=== PATIENT | male | born 1935 | race African-American/Black ===

== ENCOUNTER 2018-08-05 10:41 | Emergency (ER) | payer OTHER, MEDICAID ==
[~2018-08-05] VITALS: Ht 170.2 cm; Wt 65.0 kg
[2018-08-05 12:20] LABS: CHLORIDE 106 mEq/L (98-107)
[2018-08-05 13:37] LABS: BASOPHILS % 0.2 % (0.0-2.0); EOSINOPHILS % 0.2 % (0.0-5.0); HEMATOCRIT. 46.7 % (42.0-52.0); HEMOGLOBIN. 14.8 g/dL (14.0-18.0); LYMPHOCYTES % 7.4 % (20.0-50.0); MEAN CORPUSCULAR HEMOGLOBIN 21.8 pg (28.0-32.0); MEAN CORPUSCULAR VOLUME 68.6 fL (80.0-94.0); MONOCYTES % 9.5 % (2.0-8.0); NEUTROPHILS % 82.7 % (40.0-76.0); PLATELET 132 x1000/uL (130-400); RED BLOOD CELL COUNT 6.81 mill/uL (4.7-6.1); RED CELL DISTRIBUTION WIDTH 17.1 % (11.6-14.6)
[2018-08-05 14:05] LABS: PLATELET ESTIMATE NORMAL
[2018-08-05 15:21] VITALS: BP 130/62
== END 2018-08-05 15:22 | disposition left against medical advice (07) ==
LOC: EDBD 11:00 → ER 11:00 → CANBEDREQ 16:55
DX: R55 Syncope and collapse (principal); C41.1 Malignant neoplasm of mandible; Z91.81 History of falling
CPT/HCPCS: 36415; 70450; 71045; 80053; 84484; 85025; 93005; 99285

== ENCOUNTER 2019-08-04 21:30 | Inpatient (IN) | payer OTHER, MEDICAID ==
[~2019-08-04] VITALS: Ht 167.6 cm; Wt 49.0 kg
[2019-08-04] MEDS ORDERED: SODIUM CHLORIDE 0.9% 500 ML IV ONE (23:09)
[2019-08-05 00:01] LABS: HEMATOCRIT. 47.9 % (42.0-52.0); HEMOGLOBIN. 14.9 g/dL (14.0-18.0); MEAN CORPUSCULAR VOLUME 67.3 fL (80.0-94.0); MEAN PLATELET VOLUME 9.5 fl (7.4-10.4); PLATELET 154 x1000/uL (130-400); RED BLOOD CELL COUNT 7.11 mill/uL (4.7-6.1); RED CELL DISTRIBUTION WIDTH 16.3 % (11.6-14.6)
[2019-08-05 00:11] LABS: INR 1.2; PARTIAL THROMBOPLASTIN TIME 28.7 sec (23.4-31.0); PROTHROMBIN TIME 12.5 sec (9.6-11.0)
[2019-08-05 00:16] LABS: CHLORIDE 114 mEq/L (98-107)
[2019-08-05 00:28] LABS: CLARITY URINE CLEAR (CLEAR); COLOR URINE YELLOW (YELLOW); KETONES URINE NEGATIVE (NEGATIVE); LEUKOCYTE ESTERASE URINE TRACE (NEGATIVE); NITRITE URINE NEGATIVE (NEGATIVE); OCCULT BLOOD URINE 2+ (NEGATIVE); PROTEIN URINE NEGATIVE (NEGATIVE); SPECIFIC GRAVITY URINE 1.015 (1.005-1.030)
[2019-08-05] MEDS ORDERED: SODIUM CHLORIDE 0.9% 1,000 ML IV SCH (03:13)
[2019-08-05] MEDS ORDERED: CLONIDINE 0.1MG TABLET PO PRN (03:15)
[2019-08-05] MEDS ORDERED: IPRATROPIUM/ALBUTEROL 0.5-3(2.5)MG/3ML NEB HHN PRN (03:15)
[2019-08-05] MEDS ORDERED: ONDANSETRON HCL 4MG/2ML INJ IV PRN (03:15)
[2019-08-05] MEDS ORDERED: DIPHENHYDRAMINE 50MG/ML VIAL IV PRN (03:15)
[2019-08-05] MEDS ORDERED: ACETAMINOPHEN 325MG TABLET PO PRN (03:15)
[2019-08-05] MEDS ORDERED: MAGNESIUM/ALUMINUM HYDROXIDE/SIMETHICONE 30ML UDC PO PRN (03:15)
[2019-08-05 06:36] LABS: PLATELET ESTIMATE NORMAL
[2019-08-05] MEDS: DEXT 5% WATER + KCL 20MEQ/L 1,000 ML IV SCH (08:53)
[2019-08-05] MEDS ORDERED: LEVOFLOXACIN 500MG PREMIX 100 ML IV ONE (14:00)
[2019-08-05] MEDS ORDERED: DIGOXIN 500MCG/2ML AMP IV NR (17:29)
[2019-08-06] VITALS (7 sets, daily range): BP systolic 114–135; BP diastolic 69–89
[2019-08-06 04:17] LABS: BG BASE EXCESS 2.4 mmol/L (-2.0-2.0); BG CARBOXYHEMOGLOBIN 0.6 % (0.5-1.5); BG DEOXYHEMOGLOBIN 10.8 % (0.0-5.0); BG FRACTION INSPIRED OXYGEN 60; BG HCO3 ACT 26.2 mmol/L (22.0-26.0); BG METHEMOGLOBIN 0.3 % (0.0-1.5); BG OXYGEN SATURATION 89.1 % (92.0-98.5); BG OXYHEMOGLOBIN 88.3 % (94.0-97.0); BG PCO2 37.7 mmHg (35.0-45.0); BG PH 7.459 (7.350-7.450); BG SAMPLE SITE LEFT RADIAL; BG TOTAL HEMOGLOBIN 14.7 g/dL (12.0-18.0)
[2019-08-06 06:53] LABS: HEMATOCRIT. 44.6 % (42.0-52.0); HEMOGLOBIN. 13.8 g/dL (14.0-18.0); MEAN CORPUSCULAR HEMOGLOBIN 20.7 pg (28.0-32.0); MEAN CORPUSCULAR VOLUME 66.8 fL (80.0-94.0); MEAN PLATELET VOLUME 9.4 fl (7.4-10.4); PLATELET 142 x1000/uL (130-400); RED BLOOD CELL COUNT 6.68 mill/uL (4.7-6.1); RED CELL DISTRIBUTION WIDTH 16.4 % (11.6-14.6)
[2019-08-06 06:57] LABS: PHOSPHORUS 2.3 mg/dL (2.5-4.9)
[2019-08-06] MEDS: DEXT 5% WATER + KCL 20MEQ/L 1,000 ML IV SCH ×2 (09:07→15:00)
[2019-08-06] MEDS ORDERED: ACETAMINOPHEN 650MG SUPP PR PRN (10:45)
[2019-08-06 12:07] LABS: PLATELET ESTIMATE NORMAL
[2019-08-06] MEDS: IPRATROPIUM/ALBUTEROL 0.5-3(2.5)MG/3ML NEB HHN SCH (20:31)
[2019-08-07] VITALS (8 sets, daily range): BP systolic 121–151; BP diastolic 80–94
[2019-08-07] MEDS: DEXT 5% WATER + KCL 20MEQ/L 1,000 ML IV SCH ×3 (02:05→21:29)
[2019-08-07] MEDS: IPRATROPIUM/ALBUTEROL 0.5-3(2.5)MG/3ML NEB HHN SCH ×5 (02:50→23:54)
[2019-08-07 12:04] LABS: HEMATOCRIT. 43.5 % (42.0-52.0); HEMOGLOBIN. 13.7 g/dL (14.0-18.0); MEAN CORPUSCULAR VOLUME 66.5 fL (80.0-94.0); MEAN PLATELET VOLUME 9.3 fl (7.4-10.4); PLATELET 147 x1000/uL (130-400); RED BLOOD CELL COUNT 6.55 mill/uL (4.7-6.1); RED CELL DISTRIBUTION WIDTH 16.3 % (11.6-14.6)
[2019-08-07 12:11] LABS: CHLORIDE 118 mEq/L (98-107)
[2019-08-07 12:17] LABS: PHOSPHORUS 1.9 mg/dL (2.5-4.9)
[2019-08-07] MEDS ORDERED: PIPERACILLIN/TAZOBACTAM 3.375 G in DEXT 5% WATER 100 ML IV SCH (14:30)
[2019-08-07] MEDS ORDERED: LORAZEPAM 2MG/ML CPJ IV PRN (15:45)
[2019-08-07] MEDS ORDERED: MORPHINE SULFATE 2 MG/ML CPJ (NOT FOR IM USE) IV PRN (15:45)
[2019-08-07 17:28] LABS: PLATELET ESTIMATE NORMAL
[2019-08-07] MEDS: PIPERACILLIN/TAZOBACTAM 2.25 G in DEXTROSE 5% WATER 50 ML IV SCH (18:07)
[2019-08-07] MEDS: ACETYLCYSTEINE 100MG/ML 10% VIAL 4ML INH SCH (23:53)
[2019-08-08 00:14] VITALS: BP 112/72
[2019-08-08] MEDS: PIPERACILLIN/TAZOBACTAM 2.25 G in DEXTROSE 5% WATER 50 ML IV SCH ×5 (00:22→23:54)
[2019-08-08 04:24] VITALS: BP 117/84
[2019-08-08] MEDS: IPRATROPIUM/ALBUTEROL 0.5-3(2.5)MG/3ML NEB HHN SCH ×5 (05:25→22:22)
[2019-08-08] MEDS: DEXT 5% WATER + KCL 20MEQ/L 1,000 ML IV SCH ×2 (06:05→17:46)
[2019-08-08] MEDS: ACETYLCYSTEINE 100MG/ML 10% VIAL 4ML INH SCH ×3 (08:47→22:22)
[2019-08-08] MEDS: CHLORHEXIDINE GLUCONATE 0.12% MOUTHWASH UDC SSP SCH ×2 (09:00→16:51)
[2019-08-08 12:00] VITALS: BP 105/57
[2019-08-08 16:00] VITALS: BP 111/63
[2019-08-08 20:00] VITALS: BP 107/63
[2019-08-09] VITALS: BP 118/64
[2019-08-09] MEDS: IPRATROPIUM/ALBUTEROL 0.5-3(2.5)MG/3ML NEB HHN SCH ×5 (02:00→21:40)
[2019-08-09 04:00] VITALS: BP 122/57
[2019-08-09] MEDS: DEXT 5% WATER + KCL 20MEQ/L 1,000 ML IV SCH ×3 (04:32→23:35)
[2019-08-09] MEDS: PIPERACILLIN/TAZOBACTAM 2.25 G in DEXTROSE 5% WATER 50 ML IV SCH ×4 (05:38→23:34)
[2019-08-09] MEDS: ACETYLCYSTEINE 100MG/ML 10% VIAL 4ML INH SCH ×2 (08:18→16:17)
[2019-08-09] MEDS: CHLORHEXIDINE GLUCONATE 0.12% MOUTHWASH UDC SSP SCH ×2 (09:00→16:39)
[2019-08-09 12:00] VITALS: BP 130/84
[2019-08-09 16:00] VITALS: BP 134/71
[2019-08-10] MEDS: ACETYLCYSTEINE 100MG/ML 10% VIAL 4ML INH SCH ×3 (00:27→15:44)
[2019-08-10] MEDS: IPRATROPIUM/ALBUTEROL 0.5-3(2.5)MG/3ML NEB HHN SCH ×6 (00:32→20:47)
[2019-08-10] MEDS: PIPERACILLIN/TAZOBACTAM 2.25 G in DEXTROSE 5% WATER 50 ML IV SCH ×4 (06:06→23:33)
[2019-08-10 08:00] VITALS: BP 107/66
[2019-08-10] MEDS: CHLORHEXIDINE GLUCONATE 0.12% MOUTHWASH UDC SSP SCH ×2 (09:00→17:00)
[2019-08-10] MEDS: DEXT 5% WATER + KCL 20MEQ/L 1,000 ML IV SCH ×2 (10:35→23:34)
[2019-08-10 12:00] VITALS: BP 123/79
[2019-08-10 16:00] VITALS: BP 151/70
[2019-08-10] MEDS: FAMOTIDINE 20MG/2ML VIAL IV SCH (17:48)
[2019-08-10 20:00] VITALS: BP 142/81
[2019-08-10] MEDS ORDERED: FAMOTIDINE 20MG/2ML VIAL IV SCH (21:00)
[2019-08-11] VITALS: BP 134/85
[2019-08-11] MEDS: ACETYLCYSTEINE 100MG/ML 10% VIAL 4ML INH SCH ×3 (01:07→16:36)
[2019-08-11] MEDS: IPRATROPIUM/ALBUTEROL 0.5-3(2.5)MG/3ML NEB HHN SCH ×6 (01:07→20:25)
[2019-08-11 04:00] VITALS: BP 122/71
[2019-08-11] MEDS: DEXT 5% WATER + KCL 20MEQ/L 1,000 ML IV SCH (05:30)
[2019-08-11] MEDS: PIPERACILLIN/TAZOBACTAM 2.25 G in DEXTROSE 5% WATER 50 ML IV SCH ×3 (06:40→17:57)
[2019-08-11 08:00] VITALS: BP 122/71
[2019-08-11] MEDS: CHLORHEXIDINE GLUCONATE 0.12% MOUTHWASH UDC SSP SCH ×2 (10:00→17:56)
[2019-08-11] MEDS: FAMOTIDINE 20MG/2ML VIAL IV SCH (10:00)
[2019-08-11 12:00] VITALS: BP 150/77
[2019-08-11 16:00] VITALS: BP 129/66
[2019-08-11] MEDS ORDERED: TUBERCULIN,PURIF.PROT.DERIV. 5 TU/0.1 ML SYR ID ONE (17:00)
[2019-08-11 20:00] VITALS: BP 134/76
[2019-08-12] VITALS: BP 128/72
[2019-08-12] MEDS: PIPERACILLIN/TAZOBACTAM 2.25 G in DEXTROSE 5% WATER 50 ML IV SCH ×4 (00:37→17:59)
[2019-08-12] MEDS: IPRATROPIUM/ALBUTEROL 0.5-3(2.5)MG/3ML NEB HHN SCH ×6 (00:45→20:43)
[2019-08-12] MEDS: ACETYLCYSTEINE 100MG/ML 10% VIAL 4ML INH SCH ×2 (00:45→09:23)
[2019-08-12 04:00] VITALS: BP 99/75
[2019-08-12 08:00] VITALS: BP 94/45
[2019-08-12] MEDS: CHLORHEXIDINE GLUCONATE 0.12% MOUTHWASH UDC SSP SCH ×2 (09:38→17:59)
[2019-08-12] MEDS: FAMOTIDINE 20MG/2ML VIAL IV SCH (09:38)
[2019-08-12 12:00] VITALS: BP 110/56
[2019-08-12] MEDS: DEXT 5% WATER + KCL 20MEQ/L 1,000 ML IV SCH (13:34)
[2019-08-12 16:00] VITALS: BP 118/77
[2019-08-12 20:00] VITALS: BP 131/74
[2019-08-13] VITALS: BP 112/74
[2019-08-13] MEDS: PIPERACILLIN/TAZOBACTAM 2.25 G in DEXTROSE 5% WATER 50 ML IV SCH ×5 (00:32→23:59)
[2019-08-13] MEDS: ACETYLCYSTEINE 100MG/ML 10% VIAL 4ML INH SCH ×2 (00:43→08:25)
[2019-08-13] MEDS: IPRATROPIUM/ALBUTEROL 0.5-3(2.5)MG/3ML NEB HHN SCH ×6 (00:44→21:17)
[2019-08-13 04:00] VITALS: BP 117/74
[2019-08-13] MEDS: DEXT 5% WATER + KCL 20MEQ/L 1,000 ML IV SCH ×3 (05:34→18:48)
[2019-08-13 08:00] VITALS: BP 125/72
[2019-08-13] MEDS: CHLORHEXIDINE GLUCONATE 0.12% MOUTHWASH UDC SSP SCH ×2 (09:00→17:00)
[2019-08-13] MEDS: FAMOTIDINE 20MG/2ML VIAL IV SCH (09:52)
[2019-08-13 12:00] VITALS: BP 131/74
[2019-08-13 16:00] VITALS: BP 113/68
[2019-08-13 20:00] VITALS: BP 124/66
[2019-08-14] VITALS: BP 135/86
[2019-08-14] MEDS: IPRATROPIUM/ALBUTEROL 0.5-3(2.5)MG/3ML NEB HHN SCH ×6 (01:10→20:54)
[2019-08-14] MEDS: DEXT 5% WATER + KCL 20MEQ/L 1,000 ML IV SCH ×2 (03:22→13:38)
[2019-08-14 04:00] VITALS: BP 113/63
[2019-08-14] MEDS: PIPERACILLIN/TAZOBACTAM 2.25 G in DEXTROSE 5% WATER 50 ML IV SCH ×3 (06:57→19:05)
[2019-08-14 08:00] VITALS: BP 132/73
[2019-08-14] MEDS: FAMOTIDINE 20MG/2ML VIAL IV SCH (09:00)
[2019-08-14] MEDS: CHLORHEXIDINE GLUCONATE 0.12% MOUTHWASH UDC SSP SCH ×2 (09:00→17:00)
[2019-08-14 12:00] VITALS: BP 132/76
[2019-08-14 16:00] VITALS: BP 114/71
[2019-08-14 20:00] VITALS: BP 111/66
[2019-08-15] VITALS: BP 113/72
[2019-08-15] MEDS: IPRATROPIUM/ALBUTEROL 0.5-3(2.5)MG/3ML NEB HHN SCH ×6 (01:03→22:05)
[2019-08-15] MEDS: DEXT 5% WATER + KCL 20MEQ/L 1,000 ML IV SCH ×3 (01:34→23:54)
[2019-08-15 04:00] VITALS: BP 108/63
[2019-08-15 08:00] VITALS: BP 119/66
[2019-08-15] MEDS: FAMOTIDINE 20MG/2ML VIAL IV SCH (10:08)
[2019-08-15 12:00] VITALS: BP 121/74
[2019-08-15 16:00] VITALS: BP 134/65
[2019-08-15 20:00] VITALS: BP 126/68
[2019-08-16] VITALS: BP 120/70
[2019-08-16] MEDS: IPRATROPIUM/ALBUTEROL 0.5-3(2.5)MG/3ML NEB HHN SCH ×3 (01:43→08:00)
[2019-08-16 04:00] VITALS: BP 128/72
[2019-08-16] MEDS: DEXT 5% WATER + KCL 20MEQ/L 1,000 ML IV SCH (04:30)
[2019-08-16 07:54] VITALS: BP 120/70
[2019-08-16 08:00] VITALS: BP 120/70
[2019-08-16] MEDS: FAMOTIDINE 20MG/2ML VIAL IV SCH (08:21)
[2019-08-16 10:29] VITALS: BP 120/70
[2019-08-16 11:41] VITALS: BP 120/67
== END 2019-08-16 14:15 | DRG 871 ==
LOC: ER 21:30 → EDBEDREQDT 08-05 01:03 → EDBEDREQTM 08-05 01:03 → EDBEDREQ 08-05 01:03 → EDBEDREQTM 08-05 01:45 → EDBEDREQ 08-05 01:45 → 6WST 08-06 00:59 → ENRESERV 08-06 01:43
PROVIDERS: ADMIT Internal Medicine; ATTEND Internal Medicine
DX: A41.9 Sepsis, unspecified organism (principal); E43 Unspecified severe protein-calorie malnutrition; J69.0 Pneumonitis due to inhalation of food and vomit; J96.00 Acute respiratory failure, unspecified whether with hypoxia or hypercapnia; E87.0 Hyperosmolality and hypernatremia; N17.9 Acute kidney failure, unspecified; Z68.1 Body mass index [BMI] 19.9 or less, adult; E86.0 Dehydration; E11.9 Type 2 diabetes mellitus without complications; Z66 Do not resuscitate; G90.4 Autonomic dysreflexia; Z85.830 Personal history of malignant neoplasm of bone; Z85.840 Personal history of malignant neoplasm of eye
CPT/HCPCS: 36415; 36600; 71045; 80048; 82375; 82805; 83605; 83735; 83880; 84100; 84484; 90585; 92610; 93005; 94640; C1893; J1160; J1956; J2060; J2543; J3490; J7040; J7060; J7608; J7620; A4315